=== PATIENT | female | born 1945 | race Caucasian/White ===

== ENCOUNTER → 2017-02-21 | Outpatient (CLI) | payer OTHER, MEDICARE | END | disposition home or self-care (01) | LOC: CFH 10:32 | PROVIDERS: ATTEND Family Medicine | DX: Z12.31 Encounter for screening mammogram for malignant neoplasm of breast (principal); N95.8 Other specified menopausal and perimenopausal disorders; M85.88 Other specified disorders of bone density and structure, other site | CPT/HCPCS: 77063; 77080; 77067 ==

== ENCOUNTER → 2017-03-29 | Outpatient (CLI) | payer OTHER, MEDICARE | END | disposition home or self-care (01) | LOC: CFH 08:02 | PROVIDERS: ATTEND Family Medicine | DX: N28.1 Cyst of kidney, acquired (principal); R74.8 Abnormal levels of other serum enzymes; R79.89 Other specified abnormal findings of blood chemistry; Z90.49 Acquired absence of other specified parts of digestive tract | CPT/HCPCS: 76705 ==

== ENCOUNTER → 2017-04-08 | Outpatient (CLI) | payer OTHER, MEDICARE ==
[~2017-04-08] MED LIST: OMNIPAQUE 350 MG/ML, 100ML BOTTLE ONE
[2017-04-08 13:13] LABS: CREATININE 0.72 mg/dL (0.55-1.02)
== END | disposition home or self-care (01) ==
LOC: RAD 11:03
PROVIDERS: ATTEND Family Medicine
DX: R93.2 Abnormal findings on diagnostic imaging of liver and biliary tract (principal); R94.5 Abnormal results of liver function studies; N28.1 Cyst of kidney, acquired
CPT/HCPCS: 36415; 74170; 82565; Q9967

== ENCOUNTER 2017-08-27 15:05 | Inpatient (IN) | payer OTHER, MEDICARE ==
[~2017-08-27] VITALS: Ht 172.7 cm; Wt 104.6 kg
[2017-08-27 16:01] LABS: BASOPHILS # (AUTO) 0.03 x10^3/uL (0-0.1); BASOPHILS % (AUTO) 0 % (0-1); EOSINOPHILS # (AUTO) 0.14 x10^3/uL (0-0.4); EOSINOPHILS % (AUTO) 1 % (1-7); LYMPHOCYTES # (AUTO) 2.02 x10^3/uL (1-3.4); LYMPHOCYTES % (AUTO) 14 % (22-44); MD NO; MEAN CORPUSCULAR HEMOGLOBIN 30.3 pg (27.0-34.8); MEAN CORPUSCULAR HGB CONC 33.1 g/dL (32.4-35.8); MEAN CORPUSCULAR VOLUME 91.5 fL (80-100); MEAN PLATELET VOLUME 9.3 fL (7.4-10.4); MONOCYTES # (AUTO) 1.14 x10^3/uL (0.2-0.8); MONOCYTES % (AUTO) 8 % (2-9); NEUTROPHILS # (AUTO) 11.09 x10^3/uL (1.8-6.8); NEUTROPHILS % (AUTO) 77 % (42-75); PLATELET COUNT 301 x10^3/uL (130-400); RED BLOOD COUNT 4.55 x10^6/uL (3.82-5.3); RED CELL DISTRIBUTION WIDTH 13.9 % (9.6-15.2)
[2017-08-27] MEDS ORDERED: CHOL500015 PO (16:03)
[2017-08-27] MEDS ORDERED: [UNRECOGNIZED DRUG - CODE] BC (16:03)
[2017-08-27] MEDS ORDERED: INSU100V8 SQ (16:03)
[2017-08-27] MEDS ORDERED: OMEG-147 PO (16:03)
[2017-08-27] MEDS ORDERED: IRBE150T49 PO (16:03)
[2017-08-27] MEDS ORDERED: MELA3TAB15 PO (16:03)
[2017-08-27] MEDS ORDERED: DIAZ5TAB4 PO (16:03)
[2017-08-27] MEDS ORDERED: HYDR2TAB29 BC (16:03)
[2017-08-27] MEDS ORDERED: DULO60CA7 PO (16:03)
[2017-08-27] MEDS ORDERED: ROPI1TAB PO (16:03)
[2017-08-27] MEDS ORDERED: [UNRECOGNIZED DRUG - CODE] BC (16:03)
[2017-08-27] MEDS ORDERED: QUET25TA5 PO (16:03)
[2017-08-27] MEDS ORDERED: CYCL7.5T25 PO (16:03)
[2017-08-27 16:10] LABS: INTERNATIONAL NORMALIZED RATIO 0.95 (0.93-1.1); PROTHROMBIN TIME 9.9 Seconds (9.6-11.5)
[2017-08-27 16:11] LABS: ANION GAP 9 mmol/L (5-15); CALCIUM 8.6 mg/dL (8.5-10.1); CHLORIDE 102 mmol/L (98-107); CREATININE 0.84 mg/dL (0.55-1.02)
[2017-08-27 16:14] LABS: TROPONIN I < 0.015 ng/mL (0.000-0.045)
[2017-08-27] MEDS ORDERED: HYDROcodone/APAP 10/325 MG TABLET ONE (16:54)
[2017-08-27] MEDS ORDERED: HYDROcodone/APAP 10/325 MG TABLET PO ONE (17:00)
[2017-08-27] MEDS ORDERED: LABETALOL 5MG/ML, 20ML IVPush PRN (17:30)
[2017-08-27] MEDS ORDERED: NITROGLYCERIN 0.4 MG/SPRAY SL PRN (17:30)
[2017-08-27] MEDS ORDERED: ACETAMINOPHEN 325 MG TABLET PO PRN (17:30)
[2017-08-27] MEDS ORDERED: hydrALAzine 20 MG/ML, 1ML IVPush PRN (17:30)
[2017-08-27 18:14] LABS: TROPONIN I < 0.015 ng/mL (0.000-0.045)
[2017-08-27 18:18] VITALS: BP 168/76
[2017-08-27] MEDS ORDERED: MAALOX/HYOSCYAMINE/LIDOCAINE 45 ML BTL PO ONE (19:30)
[2017-08-27 19:49] VITALS: BP 184/78
[2017-08-27] MEDS: NITROGLYCERIN 0.4 MG BOTTLE (25 TABS) SL PRN ×3 (19:57→20:03)
[2017-08-27] MEDS: morphine SULFATE 10 MG/ML, 1ML IVPush PRN ×2 (20:09→22:10)
[2017-08-27 21:58] LABS: HEMOGLOBIN A1C 9.9 % (4.2-6.3)
[2017-08-27] MEDS ORDERED: DEXTROSE 50%, 50ML SYRINGE IVPush PRN (22:00)
[2017-08-27] MEDS ORDERED: QUETIAPINE 100MG TABLET PO SCH (22:00)
[2017-08-27] MEDS ORDERED: DEXTROSE 4 GM TAB.CHEW PO PRN (22:00)
[2017-08-27] MEDS: SEROQUEL MC SCH (22:00)
[2017-08-27] MEDS: INSULIN GLARGINE 100 UNITS/ML, PEN SQ-INSULIN SCH (22:00)
[2017-08-27] MEDS ORDERED: CHOLECALCIFEROL 1,000 UNIT TABLET PO SCH (22:00)
[2017-08-27] MEDS ORDERED: GLUCAGON 1 MG IM PRN (22:00)
[2017-08-27] MEDS: HEPARIN 5,000 UNITS/ML, 1ML SQ SCH (22:11)
[2017-08-27] MEDS ORDERED: ONDANSETRON 2MG/ML, 2ML ONE (22:14)
[2017-08-27] MEDS ORDERED: ONDANSETRON 2MG/ML, 2ML IVPush PRN (22:30)
[2017-08-27] MEDS ORDERED: ALBUTEROL/IPRATROPIUM 2.5MG/0.5MG, 3 ML ONE (22:38)
[2017-08-27] MEDS ORDERED: ALBUTEROL/IPRATROPIUM 2.5MG/0.5MG, 3 ML NPPB PRN (23:00)
[2017-08-27] MEDS: DOXYCYCLINE 100 MG in DEXTROSE 5% 250 ML IV SCH (23:00)
[2017-08-27] MEDS: GUAIFENESIN ER 600 MG TABLET PO SCH (23:03)
[2017-08-27] MEDS: INSULIN LISPRO 100 UNITS/ML, PEN SQ-INSULIN SCH (23:07)
[2017-08-27 23:16] LABS: ALBUMIN 3.5 g/dL (3.4-5.0)
[2017-08-27 23:20] LABS: TROPONIN I < 0.015 ng/mL (0.000-0.045)
[2017-08-28] MEDS: CEFTRIAXONE PMX 2GM/50ML 50 ML IV SCH (00:31)
[2017-08-28] MEDS: HYDROcodone/APAP 5/325 TABLET PO PRN ×4 (00:33→20:44)
[2017-08-28 00:43] VITALS: BP 167/83
[2017-08-28 05:15] LABS: MEAN CORPUSCULAR HEMOGLOBIN 30.1 pg (27.0-34.8); MEAN CORPUSCULAR VOLUME 91.1 fL (80-100); PLATELET COUNT 282 x10^3/uL (130-400); RED BLOOD COUNT 4.77 x10^6/uL (3.82-5.3); RED CELL DISTRIBUTION WIDTH 13.9 % (9.6-15.2)
[2017-08-28 05:23] LABS: ANION GAP 9 mmol/L (5-15); CALCIUM 8.4 mg/dL (8.5-10.1); CHLORIDE 101 mmol/L (98-107); CREATININE 0.77 mg/dL (0.55-1.02)
[2017-08-28 05:34] LABS: THYROID STIMULATING HORMONE 0.511 mIU/L (0.358-3.740)
[2017-08-28 05:45] LABS: MD YES
[2017-08-28 05:47] LABS: BANDS%(MANUAL) 10 % (0-7); LYMPH#(MANUAL) 2.86 x10^3/uL (1-3.4); LYMPHS% (MANUAL) 13 % (22-44); MONOS#(MANUAL) 0.66 x10^3/uL (0.3-2.7); MONOS% (MANUAL) 3 % (2-9); SEG#(MANUAL) 16.28 x10^3/uL (1.8-6.8); SEGS% (MANUAL) 74 % (42-75)
[2017-08-28 05:48] LABS: <RBC MORPHOLOGY> NORMAL
[2017-08-28 05:49] LABS: <PLATELET ESTIMATE> ADEQUATE; LARGE PLATELETS 1+
[2017-08-28] MEDS: SEROQUEL MC SCH ×3 (05:49→22:00)
[2017-08-28] MEDS: CIPROFLOXACIN OPHTH SOLN 0.3%, 5ML RIGHTEYE SCH ×4 (06:20→20:46)
[2017-08-28] MEDS: predniSOLONE OPHTH SUSP 1%, 5ML RIGHTEYE SCH ×4 (06:23→20:46)
[2017-08-28] MEDS: KETOROLAC OPHTH 0.5%, 5ML RIGHTEYE SCH ×4 (06:25→20:46)
[2017-08-28] MEDS: HEPARIN 5,000 UNITS/ML, 1ML SQ SCH ×3 (06:25→22:11)
[2017-08-28] MEDS ORDERED: hydrALAzine 20 MG/ML, 1ML IVPush PRN (06:30)
[2017-08-28] MEDS ORDERED: LABETALOL 5MG/ML, 20ML IVPush PRN (06:30)
[2017-08-28 07:23] VITALS: BP 137/70
[2017-08-28] MEDS: DULOXETINE 30 MG CAPSULE.DR PO SCH ×2 (08:50→20:44)
[2017-08-28] MEDS: GUAIFENESIN ER 600 MG TABLET PO SCH ×2 (08:50→20:44)
[2017-08-28] MEDS: SODIUM CHLORIDE FLUSH 10ML SYR IVF SCH ×2 (08:50→20:47)
[2017-08-28] MEDS: INSULIN LISPRO 100 UNITS/ML, PEN SQ-INSULIN SCH ×4 (08:50→20:46)
[2017-08-28] MEDS ORDERED: INSULIN GLARGINE 100 UNITS/ML, PEN SQ-INSULIN ONE (11:00)
[2017-08-28 12:35] VITALS: BP 118/50
[2017-08-28] MEDS: DOXYCYCLINE 100 MG in DEXTROSE 5% 250 ML IV SCH (13:09)
[2017-08-28 15:38] VITALS: BP_DIAS 65
[2017-08-28 19:58] VITALS: BP_SYST 68
[2017-08-28] MEDS: IRBESARTAN 150 MG TABLET PO SCH (20:44)
[2017-08-28] MEDS: MELATONIN 3 MG TABLET PO SCH (20:44)
[2017-08-28] MEDS: CYCLOBENZAPRINE 10 MG TABLET PO PRN (20:44)
[2017-08-28] MEDS: ROPINIROLE 1MG TABLET PO SCH (20:44)
[2017-08-28] MEDS: INSULIN GLARGINE 100 UNITS/ML, PEN SQ-INSULIN SCH (20:45)
[2017-08-28] MEDS ORDERED: LEVO175T2 PO (20:52)
[2017-08-28] MEDS ORDERED: QUET300T6 PO (22:17)
[2017-08-29] MEDS: CEFTRIAXONE PMX 2GM/50ML 50 ML IV SCH (00:59)
[2017-08-29] MEDS: HYDROcodone/APAP 5/325 TABLET PO PRN ×5 (01:04→20:54)
[2017-08-29] MEDS: DOXYCYCLINE 100 MG in DEXTROSE 5% 250 ML IV SCH ×2 (01:47→13:40)
[2017-08-29 02:07] VITALS: BP 121/67
[2017-08-29 05:07] LABS: BASOPHILS % (AUTO) 0 % (0-1); EOSINOPHILS # (AUTO) 0.11 x10^3/uL (0-0.4); EOSINOPHILS % (AUTO) 1 % (1-7); LYMPHOCYTES # (AUTO) 1.92 x10^3/uL (1-3.4); LYMPHOCYTES % (AUTO) 14 % (22-44); MD NO; MEAN CORPUSCULAR HEMOGLOBIN 30.2 pg (27.0-34.8); MEAN CORPUSCULAR HGB CONC 32.8 g/dL (32.4-35.8); MEAN CORPUSCULAR VOLUME 92.1 fL (80-100); MEAN PLATELET VOLUME 8.9 fL (7.4-10.4); MONOCYTES % (AUTO) 6 % (2-9); NEUTROPHILS # (AUTO) 11.21 x10^3/uL (1.8-6.8); NEUTROPHILS % (AUTO) 80 % (42-75); PLATELET COUNT 285 x10^3/uL (130-400); RED BLOOD COUNT 4.61 x10^6/uL (3.82-5.3); RED CELL DISTRIBUTION WIDTH 13.9 % (9.6-15.2)
[2017-08-29 05:17] LABS: ANION GAP 4 mmol/L (5-15); CHLORIDE 101 mmol/L (98-107)
[2017-08-29] MEDS: SEROQUEL MC SCH ×3 (05:54→20:55)
[2017-08-29] MEDS: CIPROFLOXACIN OPHTH SOLN 0.3%, 5ML RIGHTEYE SCH ×4 (06:00→20:54)
[2017-08-29] MEDS: predniSOLONE OPHTH SUSP 1%, 5ML RIGHTEYE SCH ×4 (06:00→20:54)
[2017-08-29] MEDS: KETOROLAC OPHTH 0.5%, 5ML RIGHTEYE SCH ×4 (06:00→20:54)
[2017-08-29] MEDS: HEPARIN 5,000 UNITS/ML, 1ML SQ SCH ×3 (06:15→22:11)
[2017-08-29 07:40] VITALS: BP 121/67
[2017-08-29] MEDS: GUAIFENESIN ER 600 MG TABLET PO SCH ×2 (08:23→20:54)
[2017-08-29] MEDS: INSULIN LISPRO 100 UNITS/ML, PEN SQ-INSULIN SCH ×4 (08:23→20:53)
[2017-08-29] MEDS: DULOXETINE 30 MG CAPSULE.DR PO SCH ×2 (08:23→20:54)
[2017-08-29] MEDS: SODIUM CHLORIDE FLUSH 10ML SYR IVF SCH ×2 (08:24→20:53)
[2017-08-29] MEDS: CYCLOBENZAPRINE 10 MG TABLET PO PRN ×2 (08:28→20:54)
[2017-08-29 14:00] VITALS: BP 106/64
[2017-08-29 20:00] VITALS: BP 146/73
[2017-08-29] MEDS: INSULIN GLARGINE 100 UNITS/ML, PEN SQ-INSULIN SCH (20:52)
[2017-08-29] MEDS: IRBESARTAN 150 MG TABLET PO SCH (20:54)
[2017-08-29] MEDS: ROPINIROLE 1MG TABLET PO SCH (20:54)
[2017-08-29] MEDS: MELATONIN 3 MG TABLET PO SCH (20:54)
[2017-08-30] MEDS: CEFTRIAXONE PMX 2GM/50ML 50 ML IV SCH (00:17)
[2017-08-30] MEDS: DOXYCYCLINE 100 MG in DEXTROSE 5% 250 ML IV SCH ×2 (01:37→13:23)
[2017-08-30 01:59] VITALS: BP 144/80
[2017-08-30] MEDS: HYDROcodone/APAP 5/325 TABLET PO PRN ×2 (04:21→22:30)
[2017-08-30] MEDS: HEPARIN 5,000 UNITS/ML, 1ML SQ SCH ×3 (06:11→21:12)
[2017-08-30] MEDS: predniSOLONE OPHTH SUSP 1%, 5ML RIGHTEYE SCH ×4 (06:11→21:13)
[2017-08-30] MEDS: CIPROFLOXACIN OPHTH SOLN 0.3%, 5ML RIGHTEYE SCH ×4 (06:11→21:13)
[2017-08-30] MEDS: KETOROLAC OPHTH 0.5%, 5ML RIGHTEYE SCH ×4 (06:11→21:12)
[2017-08-30 07:17] LABS: BASOPHILS # (AUTO) 0.02 x10^3/uL (0-0.1); BASOPHILS % (AUTO) 0 % (0-1); EOSINOPHILS # (AUTO) 0.17 x10^3/uL (0-0.4); EOSINOPHILS % (AUTO) 1 % (1-7); LYMPHOCYTES # (AUTO) 1.71 x10^3/uL (1-3.4); LYMPHOCYTES % (AUTO) 13 % (22-44); MD NO; MEAN CORPUSCULAR HEMOGLOBIN 29.6 pg (27.0-34.8); MEAN CORPUSCULAR HGB CONC 32.6 g/dL (32.4-35.8); MEAN CORPUSCULAR VOLUME 91.1 fL (80-100); MEAN PLATELET VOLUME 8.9 fL (7.4-10.4); MONOCYTES # (AUTO) 0.58 x10^3/uL (0.2-0.8); MONOCYTES % (AUTO) 5 % (2-9); NEUTROPHILS # (AUTO) 10.35 x10^3/uL (1.8-6.8); NEUTROPHILS % (AUTO) 81 % (42-75); PLATELET COUNT 298 x10^3/uL (130-400)
[2017-08-30] MEDS: SODIUM CHLORIDE FLUSH 10ML SYR IVF SCH ×2 (07:17→21:08)
[2017-08-30 07:26] LABS: ALBUMIN 2.9 g/dL (3.4-5.0); ANION GAP 5 mmol/L (5-15); CALCIUM 8.9 mg/dL (8.5-10.1); CHLORIDE 102 mmol/L (98-107); CREATININE 0.53 mg/dL (0.55-1.02)
[2017-08-30] MEDS: DULOXETINE 30 MG CAPSULE.DR PO SCH ×2 (07:31→21:09)
[2017-08-30] MEDS: INSULIN LISPRO 100 UNITS/ML, PEN SQ-INSULIN SCH ×4 (07:31→22:30)
[2017-08-30] MEDS: GUAIFENESIN ER 600 MG TABLET PO SCH ×2 (07:31→21:10)
[2017-08-30 07:40] VITALS: BP 106/63
[2017-08-30] MEDS ORDERED: POLYETHYLENE GLYCOL 17 GM PACKET PO ONE (08:00)
[2017-08-30] MEDS ORDERED: POLYETHYLENE GLYCOL 17 GM PACKET NG ONE (08:00)
[2017-08-30] MEDS: SENNA/DOCUSATE TABLET PO PRN (08:04)
[2017-08-30] MEDS: LEVOTHYROXINE 175 MCG TABLET PO SCH (08:04)
[2017-08-30 14:00] VITALS: BP 133/69
[2017-08-30 20:26] VITALS: BP 142/55
[2017-08-30] MEDS: IRBESARTAN 150 MG TABLET PO SCH (21:09)
[2017-08-30] MEDS: MELATONIN 3 MG TABLET PO SCH (21:10)
[2017-08-30] MEDS: ROPINIROLE 1MG TABLET PO SCH (21:10)
[2017-08-30] MEDS: QUETIAPINE 100MG TABLET PO SCH (21:11)
[2017-08-30] MEDS: INSULIN GLARGINE 100 UNITS/ML, PEN SQ-INSULIN SCH (22:30)
[2017-08-30] MEDS: CYCLOBENZAPRINE 10 MG TABLET PO PRN (22:30)
[2017-08-31] MEDS: CEFTRIAXONE PMX 2GM/50ML 50 ML IV SCH (00:36)
[2017-08-31] MEDS: DOXYCYCLINE 100 MG in DEXTROSE 5% 250 ML IV SCH ×2 (01:35→16:30)
[2017-08-31 03:48] VITALS: BP 144/58
[2017-08-31] MEDS: HYDROcodone/APAP 5/325 TABLET PO PRN ×4 (04:28→20:48)
[2017-08-31] MEDS: SENNA/DOCUSATE TABLET PO PRN (04:33)
[2017-08-31 05:01] LABS: BASOPHILS # (AUTO) 0.03 x10^3/uL (0-0.1); BASOPHILS % (AUTO) 0 % (0-1); EOSINOPHILS # (AUTO) 0.22 x10^3/uL (0-0.4); EOSINOPHILS % (AUTO) 2 % (1-7); LYMPHOCYTES # (AUTO) 2.06 x10^3/uL (1-3.4); LYMPHOCYTES % (AUTO) 22 % (22-44); MD NO; MEAN CORPUSCULAR HEMOGLOBIN 30.2 pg (27.0-34.8); MEAN CORPUSCULAR VOLUME 91.7 fL (80-100); MEAN PLATELET VOLUME 8.8 fL (7.4-10.4); MONOCYTES # (AUTO) 0.63 x10^3/uL (0.2-0.8); MONOCYTES % (AUTO) 7 % (2-9); NEUTROPHILS # (AUTO) 6.57 x10^3/uL (1.8-6.8); NEUTROPHILS % (AUTO) 69 % (42-75); PLATELET COUNT 317 x10^3/uL (130-400); RED BLOOD COUNT 4.81 x10^6/uL (3.82-5.3); RED CELL DISTRIBUTION WIDTH 13.5 % (9.6-15.2)
[2017-08-31 05:04] LABS: ANION GAP 7 mmol/L (5-15); CALCIUM 9.3 mg/dL (8.5-10.1); CHLORIDE 105 mmol/L (98-107); CREATININE 0.63 mg/dL (0.55-1.02)
[2017-08-31] MEDS: KETOROLAC OPHTH 0.5%, 5ML RIGHTEYE SCH ×4 (06:00→22:00)
[2017-08-31] MEDS: predniSOLONE OPHTH SUSP 1%, 5ML RIGHTEYE SCH ×4 (06:00→22:01)
[2017-08-31] MEDS: CIPROFLOXACIN OPHTH SOLN 0.3%, 5ML RIGHTEYE SCH ×4 (06:00→22:01)
[2017-08-31] MEDS: LEVOTHYROXINE 175 MCG TABLET PO SCH (07:21)
[2017-08-31] MEDS: HEPARIN 5,000 UNITS/ML, 1ML SQ SCH ×3 (07:26→22:11)
[2017-08-31] MEDS: DULOXETINE 30 MG CAPSULE.DR PO SCH ×2 (08:13→20:47)
[2017-08-31] MEDS: INSULIN LISPRO 100 UNITS/ML, PEN SQ-INSULIN SCH ×4 (08:13→22:02)
[2017-08-31] MEDS: GUAIFENESIN ER 600 MG TABLET PO SCH ×2 (08:13→20:47)
[2017-08-31] MEDS: SODIUM CHLORIDE FLUSH 10ML SYR IVF SCH ×2 (08:43→22:00)
[2017-08-31 09:28] VITALS: BP 120/73
[2017-08-31 13:45] VITALS: BP 134/76
[2017-08-31 19:54] VITALS: BP 136/52
[2017-08-31] MEDS: IRBESARTAN 150 MG TABLET PO SCH (20:47)
[2017-08-31] MEDS: ROPINIROLE 1MG TABLET PO SCH (20:48)
[2017-08-31] MEDS: MELATONIN 3 MG TABLET PO SCH (20:48)
[2017-08-31] MEDS: QUETIAPINE 100MG TABLET PO SCH (20:48)
[2017-08-31] MEDS: CYCLOBENZAPRINE 10 MG TABLET PO PRN (20:48)
[2017-08-31] MEDS: INSULIN GLARGINE 100 UNITS/ML, PEN SQ-INSULIN SCH (22:02)
[2017-09-01] MEDS: CEFTRIAXONE PMX 2GM/50ML 50 ML IV SCH (01:10)
[2017-09-01] MEDS: DOXYCYCLINE 100 MG in DEXTROSE 5% 250 ML IV SCH ×2 (02:03→13:55)
[2017-09-01 03:30] VITALS: BP 142/60
[2017-09-01] MEDS: SENNA/DOCUSATE TABLET PO PRN (06:48)
[2017-09-01] MEDS: LEVOTHYROXINE 175 MCG TABLET PO SCH (06:48)
[2017-09-01] MEDS: HEPARIN 5,000 UNITS/ML, 1ML SQ SCH ×2 (06:49→14:00)
[2017-09-01] MEDS: HYDROcodone/APAP 5/325 TABLET PO PRN ×2 (06:49→13:48)
[2017-09-01] MEDS: KETOROLAC OPHTH 0.5%, 5ML RIGHTEYE SCH ×2 (06:50→11:00)
[2017-09-01] MEDS: CIPROFLOXACIN OPHTH SOLN 0.3%, 5ML RIGHTEYE SCH ×2 (06:51→11:00)
[2017-09-01] MEDS: predniSOLONE OPHTH SUSP 1%, 5ML RIGHTEYE SCH ×2 (06:52→11:00)
[2017-09-01] MEDS: INSULIN LISPRO 100 UNITS/ML, PEN SQ-INSULIN SCH ×2 (07:00→11:05)
[2017-09-01 07:30] VITALS: BP 122/75
[2017-09-01] MEDS: SODIUM CHLORIDE FLUSH 10ML SYR IVF SCH (07:41)
[2017-09-01] MEDS: DULOXETINE 30 MG CAPSULE.DR PO SCH (07:41)
[2017-09-01] MEDS: GUAIFENESIN ER 600 MG TABLET PO SCH (07:41)
[2017-09-01 07:52] VITALS: BP 115/68
[2017-09-01 12:33] VITALS: BP 146/70
[2017-09-01] MEDS ORDERED: CEFD300C37 PO (12:43)
[2017-09-01] MEDS ORDERED: DOXY100T10 PO (12:43)
[2017-09-01] MEDS ORDERED: ATOR40TA78 PO (12:51)
[2017-09-01 15:05] VITALS: BP 130/73
== END 2017-09-01 15:15 | disposition home health service (06) | DRG 871 ==
LOC: ED 17:09 → EDIP 17:10 → ED 17:44 → 5SO 18:25 → 4NOR 08-28 15:35
PROVIDERS: ADMIT Hospitalist; ATTEND Hospitalist
DX: A41.9 Sepsis, unspecified organism (principal); J18.9 Pneumonia, unspecified organism; J96.01 Acute respiratory failure with hypoxia; J98.11 Atelectasis; E44.0 Moderate protein-calorie malnutrition; E87.1 Hypo-osmolality and hyponatremia; M79.7 Fibromyalgia; E83.42 Hypomagnesemia; E66.01 Morbid (severe) obesity due to excess calories; R61 Generalized hyperhidrosis; M54.9 Dorsalgia, unspecified; R53.81 Other malaise; E03.9 Hypothyroidism, unspecified; E11.65 Type 2 diabetes mellitus with hyperglycemia; E78.5 Hyperlipidemia, unspecified; G89.29 Other chronic pain; I11.9 Hypertensive heart disease without heart failure; I45.10 Unspecified right bundle-branch block; I71.4 Abdominal aortic aneurysm, without rupture; K59.00 Constipation, unspecified; Z68.35 Body mass index [BMI] 35.0-35.9, adult; Z79.4 Long term (current) use of insulin; Z87.891 Personal history of nicotine dependence
CPT/HCPCS: 36415; 71045; 71250; 80048; 82040; 82962; 83036; 83605; 83735; 84100; 84145; 84443; 84484; 85025; 85610; 85730; 87040; 87070; 87077; 87186; 87205; 93005; 93306; 94640; 96372; 96374; 96375; J0696; J1644; J2405; J7060; J1815; J2270

== ENCOUNTER 2019-10-28 12:24 | Outpatient (CLI) | payer MEDICARE, OTHER ==
[~2019-10-28 12:24] MED LIST changes: +ATOR40TA78 PO; +CEFD300C37 PO; +CHOL500015 PO; +CYCL7.5T25 PO; +DIAZ5TAB4 PO; +DOXY100T23 PO; +DULO60CA7 PO; +HYDR2TAB29 BC; +INSU100V8 SQ; +IRBE150T49 PO; +LEVO175T2 PO; +MELA3TAB15 PO; +OMEG-147 PO; -OMNIPAQUE 350 MG/ML, 100ML BOTTLE ONE; +QUET25TA5 PO; +QUET300T7 PO; +ROPI1TAB PO; +[UNRECOGNIZED DRUG - CODE] BC; +[UNRECOGNIZED DRUG - CODE] BC
[2019-10-28] MEDS ORDERED: ALPRazolam 1MG TAB ONE (13:32)
== END 2019-10-28 23:59 | disposition home or self-care (01) ==
LOC: RAD 12:24
PROVIDERS: ATTEND Nurse Practitioner
DX: Z02.9 Encounter for administrative examinations, unspecified (principal)
CPT/HCPCS: 72141

== ENCOUNTER 2019-10-30 07:16 | Outpatient (CLI) | payer MEDICARE, OTHER ==
[2019-10-30] MEDS ORDERED: MIDAZOLAM 1 MG/ML, 5ML ONE (09:55)
[2019-10-30] MEDS ORDERED: FENTANYL PF 100 MCG/2ML ONE (09:55)
== END 2019-10-30 23:59 | disposition home or self-care (01) ==
LOC: RAD 07:16
PROVIDERS: ATTEND Nurse Practitioner
DX: M54.16 Radiculopathy, lumbar region (principal); M48.061 Spinal stenosis, lumbar region without neurogenic claudication; M48.04 Spinal stenosis, thoracic region; M48.02 Spinal stenosis, cervical region; I10 Essential (primary) hypertension; E11.9 Type 2 diabetes mellitus without complications; Z88.0 Allergy status to penicillin; Z88.2 Allergy status to sulfonamides
CPT/HCPCS: 72141; 72146; 99156; 99157; J2250; J3010

== ENCOUNTER → 2020-02-16 | Outpatient (CLI) | payer MEDICARE, OTHER ==
[~2020-02-16] MED LIST changes: +REGADENOSON 0.4 MG/5 ML SYRINGE ONE
== END | disposition home or self-care (01) ==
LOC: CFH 12:11
PROVIDERS: ATTEND Internal Medicine Cardiovascular Disease
DX: I08.0 Rheumatic disorders of both mitral and aortic valves (principal); I10 Essential (primary) hypertension; R07.89 Other chest pain
CPT/HCPCS: 78452; 93017; 93306; A9502; J2785